=== PATIENT | male | born 1950 | race Caucasian/White ===

== ENCOUNTER → 2016-03-22 | Outpatient (CLI) | payer MEDICARE ==
[~2016-03-22] MED LIST: 1-ME1LIQ PO; AMLO10TA2 PO; ASPI81CH CHEW; ASPI81TA11 PO; ATOR1TAB18 PO; ATOR80TA PO; BACT800T5 PO; CLIN1CAP5 PO; CLON0.2T PO; LISI-360 PO; LISI-515 PO; METO100T PO; MSIR15 PO; PERC10TA27 PO; PLAV75TA PO; VENTAER INH
[2016-03-22 13:39] LABS: ALKALINE PHOSPHATASE 110 U/L (45-117); ALT (GPT) 16 U/L (12-78); ANION GAP 6 MEQ/L (5-15); AST (GOT) 10 U/L (15-37); BICARBONATE 29.1 MEQ/L (21.0-32.0); BLOOD UREA NITROGEN 20 MG/DL (7-18); CHLORIDE 107 MEQ/L (98-107); GLOMERULAR FILTRATION RATE 61 ML/MIN (>89); GLUCOSE,FASTING 85 MG/DL (74-99); HDL CHOLESTEROL 39.5 MG/DL (40.0-60.0); LDL CHOLESTEROL 118 MG/DL (0-99); POTASSIUM 5.1 MEQ/L (3.5-5.1); SODIUM (NA) 142 MEQ/L (136-145); TOTAL BILIRUBIN ADULT 0.5 MG/DL (0.2-1.0)
== END ==
LOC: PLAB 08:27
PROVIDERS: ATTEND Internal Medicine Interventional Cardiology
DX: E78.5 Hyperlipidemia, unspecified (principal); I11.9 Hypertensive heart disease without heart failure; I25.10 Atherosclerotic heart disease of native coronary artery without angina pectoris; Z79.899 Other long term (current) drug therapy
CPT/HCPCS: 36415; 80053; 80061

== ENCOUNTER → 2016-04-22 | Outpatient (CLI) | payer MEDICARE ==
[2016-04-22 13:47] LABS: ALKALINE PHOSPHATASE 100 U/L (45-117); ALT (GPT) 19 U/L (12-78); ANION GAP 8 MEQ/L (5-15); AST (GOT) 13 U/L (15-37); BLOOD UREA NITROGEN 18 MG/DL (7-18); CHLORIDE 104 MEQ/L (98-107); GLOMERULAR FILTRATION RATE 54 ML/MIN (>89); GLUCOSE,FASTING 81 MG/DL (74-99); LDL CHOLESTEROL 60 MG/DL (0-99); POTASSIUM 4.1 MEQ/L (3.5-5.1); SODIUM (NA) 140 MEQ/L (136-145); TOTAL BILIRUBIN ADULT 0.6 MG/DL (0.2-1.0)
== END ==
LOC: PLAB 08:30
PROVIDERS: ATTEND Internal Medicine Interventional Cardiology
DX: I77.9 Disorder of arteries and arterioles, unspecified (principal); E78.00 Pure hypercholesterolemia, unspecified; I11.9 Hypertensive heart disease without heart failure; I25.10 Atherosclerotic heart disease of native coronary artery without angina pectoris
CPT/HCPCS: 36415; 80053; 80061

== ENCOUNTER 2016-05-21 09:38 | Emergency (ER) | payer MEDICARE ==
[~2016-05-21] VITALS: Ht 188 cm; Wt 95.3 kg
[~2016-05-21 09:38] MED LIST changes: -AMLO10TA2 PO; -ASPI81CH CHEW; -ATOR1TAB18 PO; -BACT800T5 PO; -CLIN1CAP5 PO; -CLON0.2T PO; -LISI-515 PO
[2016-05-21 09:41] VITALS: BP 162/86; PULSE 67; RESP 18; TEMP 98.1; O2SAT 98
[2016-05-21] MEDS ORDERED: LISI-515 PO (10:00)
[2016-05-21] MEDS ORDERED: ATOR1TAB18 PO (10:00)
[2016-05-21] MEDS ORDERED: ASPI81CH CHEW (10:00)
[2016-05-21] MEDS ORDERED: CLON0.2T PO (10:00)
[2016-05-21] MEDS ORDERED: AMLO10TA2 PO (10:00)
[2016-05-21] MEDS ORDERED: VANCOMYCIN INJ 1,000 MG in SODIUM CHLOR 0.9% 250 ML INJ 250 ML IV ONE (10:15)
[2016-05-21] MEDS ORDERED: TETANUS/DIPHTHERIA TOXOID ADULT 0.5 ML VIAL IM ONE (10:15)
[2016-05-21] MEDS ORDERED: BACT800T5 PO (10:22)
[2016-05-21] MEDS ORDERED: CLIN1CAP5 PO (10:22)
--- NOTE | 2016-05-21 10:22 | PD ---
HPI Chief Complaint: Skin Problem Time Seen by Provider: 10:00 Travel History International Travel<30 days: No Contact w/Intl Traveler<30days: No Traveled to known affect area: No History of Present Illness HPI 66-year-old male complains of pain swelling and redness of the left knee. Patient states that he had a pimple on the left knee 2 days ago. Patient states that the pimple popped yesterday and he has increased in pain and swelling and redness since then. Patient denies any fever chills. Patient has history of neuropathy in the left leg. Patient states that he is not up-to- date with TD booster. PFSH Past Medical History Hx Anticoagulant Therapy: Yes (ASA 81MG) Cardiac Catheterization: Yes Cardiovascular Problems: Yes (CAD, HTN) High Cholesterol: Yes Diminished Hearing: No Deep Vein Thrombosis: Yes Hypertension: Yes Medical other: Yes (STENTS) Respiratory: Yes (copd) Tetanus Vaccination: > 5 Years Influenza Vaccination: No Past Surgical History Coronary Stent: Yes Other Surgery: Yes (FEMORAL BYPASS) Social History Alcohol Use: No Tobacco Use: Yes (/2 PPD) Substance Use: No Allergies-Medications (Allergen,Severity, Reaction): Coded Allergies: No Known Allergies (Unverified , 05/21/16) Reported Meds & Prescriptions Reported Meds & Active Scripts Active Reported Aspirin 81 Mg Chew 81 Mg CHEW DAILY Amlodipine (Amlodipine Besylate) 10 Mg Tab 10 Mg PO DAILY Lisinopril 20 Mg Tab 20 Mg PO DAILY Clonidine (Clonidine HCl) 0.2 Mg Tab 0.2 Mg PO DIRECTED Atorvastatin (Atorvastatin Calcium) 80 Mg Tab 80 Mg PO HS Review of Systems General / Constitutional: No: Fever Eyes: No: Visual changes HENT: No: Headaches Cardiovascular: No: Chest Pain or Discomfort Respiratory: No: Shortness of Breath Gastrointestinal: No: Abdominal Pain Genitourinary: No: Dysuria Musculoskeletal: Positive: Pain Skin: No Rash Neurologic: No: Weakness Psychiatric: No: Depression Endocrine: No: Polydipsia Hematologic/Lymphatic: No: Easy Bruising Physical Exam Narrative GENERAL: Well-nourished, well-developed patient. SKIN: Warm and dry. HEAD: Normocephalic. EYES: No scleral icterus. No injection or drainage. NECK: Supple, trachea midline. No JVD or lymphadenopathy. CARDIOVASCULAR: Regular rate and rhythm without murmurs, gallops, or rubs. RESPIRATORY: Breath sounds equal bilaterally. No accessory muscle use. GASTROINTESTINAL: Abdomen soft, non-tender, nondistended. MUSCULOSKELETAL: No cyanosis, or edema. BACK: Nontender without obvious deformity. No CVA tenderness. Patient has an area redness swelling tenderness prepatellar area of the left knee. Full range of motion of the left knee. No effusion noted. Patient has a small pimple infrapatellar area that has minimal discharge. No induration. Data Data Last Documented VS Vital Signs Date Time Temp Pulse Resp B/P Pulse Ox O2 Delivery O2 Flow Rate FiO2 05/21/16 09:41 98.1 67 18 162/86 98 Orders Vancomycin Inj (Vancomycin Inj) (05/21/16 10:15) Wound Culture And Gram Stain (05/21/16 10:12) Tetanus/Diphtheria Tox Adult (Tetanus/Di (05/21/16 10:15) MDM Medical Decision Making Medical Screen Exam Complete: Yes Emergency Medical Condition: Yes Differential Diagnosis Differential diagnosis including cellulitis, abscess, osteomyelitis, septic arthritis. Narrative Course 66-year-old male with an area redness swelling tenderness prepatellar area left knee. No evidence of abscess at this point. No evidence of joint involvement at this point. Vancomycin 1 g IV given. TD booster given. Diagnosis Primary Impression: Cellulitis of left knee Patient Instructions: General Instructions Additional Instructions: Take medications as directed. Return in a.m. for recheck. Med/Other Pt SpecificInfo: Prescription(s) given Scripts Sulfamethoxazole-Trimethoprim (Bactrim DS)800-160 Mg Tab1 Tab PO BID #20 TAB Prov:Ricardo Taylor MD 05/21/16 Clindamycin 150 Mg Cap2 Tab PO Q6H #80 CAP Prov:Ricardo Taylor MD 05/21/16 Disposition: 01 DISCHARGE HOME Condition: Stable Ricardo Taylor MD May 21, 2016 10:22
[2016-05-21 11:58] VITALS: BP 125/70; PULSE 52; RESP 18; O2SAT 97
== END 2016-05-21 12:08 | disposition home or self-care (01) ==
LOC: PHED 09:38
DX: L03.116 Cellulitis of left lower limb (principal); B95.61 Methicillin susceptible Staphylococcus aureus infection as the cause of diseases classified elsewhere; Z23 Encounter for immunization; I10 Essential (primary) hypertension; Z86.718 Personal history of other venous thrombosis and embolism; J44.9 Chronic obstructive pulmonary disease, unspecified
CPT/HCPCS: 86403; 87070; 87186; 87205; 90471; 90714; 96365; 99283; J3370; J7050

== ENCOUNTER 2016-05-22 10:17 | Emergency (ER) | payer MEDICARE ==
[~2016-05-22] VITALS: Ht 188 cm; Wt 93.4 kg
[~2016-05-22 10:17] MED LIST changes: +AMLO10TA2 PO; +ASPI81CH CHEW; +ATOR1TAB18 PO; +BACT800T5 PO; +CLIN1CAP5 PO; +CLON0.2T PO; +LISI-515 PO
[2016-05-22 10:19] VITALS: BP 188/95; PULSE 86; RESP 15; TEMP 98.1; O2SAT 98
--- NOTE | 2016-05-22 10:37 | PD ---
HPI Chief Complaint: Wound/Suture/Staple Re-Check Time Seen by Provider: 10:30 Travel History International Travel<30 days: No Contact w/Intl Traveler<30days: No Traveled to known affect area: No History of Present Illness HPI This is a 66-year-old male who presents to the emergency department with several days of swelling of his left knee, constant, moderate severity associated with a pimple in the left knee. Patient was seen in the emergency department yesterday, had sudden pus expressed from the knee and was started on clindamycin and Bactrim. He came back today for recheck. He feels like the knee is significantly improved area and he thinks the swelling has gone down and his range of motion has improved. He has not had any fevers or chills. PFSH Past Medical History Hx Anticoagulant Therapy: Yes (ASA 81MG) Cardiac Catheterization: Yes Cardiovascular Problems: Yes (CAD, HTN) High Cholesterol: Yes Diminished Hearing: No Deep Vein Thrombosis: Yes Hypertension: Yes Respiratory: Yes (copd) ?: Not Past Surgical History Coronary Stent: Yes Other Surgery: Yes (FEMORAL BYPASS) Social History Alcohol Use: No Tobacco Use: Yes (03/08 PPD) Substance Use: No Allergies-Medications (Allergen,Severity, Reaction): Coded Allergies: No Known Allergies (Unverified , 05/22/16) Reported Meds & Prescriptions Reported Meds & Active Scripts Active Bactrim DS (Sulfamethoxazole-Trimethoprim) 800-160 Mg Tab 1 Tab PO BID Clindamycin (Clindamycin HCl) 150 Mg Cap 2 Tab PO Q6H Reported Aspirin 81 Mg Chew 81 Mg CHEW DAILY Amlodipine (Amlodipine Besylate) 10 Mg Tab 10 Mg PO DAILY Lisinopril 20 Mg Tab 20 Mg PO DAILY Clonidine (Clonidine HCl) 0.2 Mg Tab 0.2 Mg PO DIRECTED Atorvastatin (Atorvastatin Calcium) 80 Mg Tab 80 Mg PO HS Review of Systems General / Constitutional: No: Fever, Chills Respiratory: No: Shortness of Breath Physical Exam Narrative GENERAL: Well-appearing, no acute distress, nontoxic SKIN: Minimal Swelling and erythema of the prepatellar area with a small pustule on the lower patella. HEAD: Atraumatic. Normocephalic. ENT: No nasal bleeding or discharge. Moist mucous membranes MUSCULOSKELETAL: Full painless range of motion of the left knee. No joint effusion. NEUROLOGICAL: Awake and alert. No obvious cranial nerve deficits. Motor grossly within normal limits. Normal speech. PSYCHIATRIC: Appropriate mood and affect; insight and judgment normal. Data Data Last Documented VS Vital Signs Date Time Temp Pulse Resp B/P Pulse Ox O2 Delivery O2 Flow Rate FiO2 05/22/16 10:19 98.1 86 15 188/95 98 [facility] Medical Decision Making Medical Screen Exam Complete: Yes Emergency Medical Condition: Yes Differential Diagnosis Cellulitis, abscess, bursitis, septic arthritis Narrative Course This is a 66-year-old male who presents to the emergency department with swelling of his prepatellar area with a small abscess. Patient subjectively feels significantly improved and his physical exam today is reassuring compared to what was documented yesterday. I do think he is improving. I advised him to return to the emergency department if he develops fevers or if he feels like his symptoms are getting worse. He has full painless range of motion and I don' t suspect septic arthritis. Patient will be discharged home and was instructed to continue antibiotic therapy. Diagnosis Primary Impression: Cellulitis of left knee Patient Instructions: General Instructions Additional Instructions: If you develop fever, increasing redness, warmth, or spreading of your infection , or severe pain return to the emergency department immediately as you may require antibiotics through your IV. Complete your course of antibiotics as prescribed. Med/Other Pt SpecificInfo: No Change to Meds Disposition: 01 DISCHARGE HOME Condition: Stable Rosaline Bar MD May 22, 2016 10:37
== END 2016-05-22 10:48 | disposition home or self-care (01) ==
LOC: PHEFT 10:17
DX: L03.116 Cellulitis of left lower limb (principal); I10 Essential (primary) hypertension; I25.10 Atherosclerotic heart disease of native coronary artery without angina pectoris; E78.00 Pure hypercholesterolemia, unspecified; Z86.718 Personal history of other venous thrombosis and embolism; Z79.82 Long term (current) use of aspirin
CPT/HCPCS: 99281

== ENCOUNTER → 2017-02-21 | Outpatient (CLI) | payer MEDICARE ==
[~2017-02-21] MED LIST changes: -1-ME1LIQ PO; +ASPI-516 CHEW; -ASPI81CH CHEW; -ASPI81TA11 PO; -ATOR1TAB18 PO; -ATOR80TA PO; +ATOR80TA45 PO; -BACT800T5 PO; -CLIN1CAP5 PO; +CLOP75TA PO; +DULO1CAP2 PO; +IBUP-232 PO; -LISI-360 PO; -LISI-515 PO; +LISI10TA3 PO; +LORA0.5T PO; -METO100T PO; +METO1TAB43 PO; +MORP1TAB24 PO; -MSIR15 PO; +OXYC1TAB63 PO; -PERC10TA27 PO; -PLAV75TA PO; -VENTAER INH
[2017-02-21 14:31] LABS: HDL CHOLESTEROL 41.1 MG/DL (40.0-60.0)
== END ==
LOC: PLAB 08:25
PROVIDERS: ATTEND Family Medicine
DX: I71.9 Aortic aneurysm of unspecified site, without rupture (principal); I25.10 Atherosclerotic heart disease of native coronary artery without angina pectoris
CPT/HCPCS: 36415; 80061